=== PATIENT | male | born 1990 | race Caucasian/White ===

== ENCOUNTER 2020-02-06 21:18 | Emergency (ER) | payer OTHER ==
[~2020-02-06] VITALS: Ht 180.3 cm; Wt 80.0 kg
[~2020-02-06 21:18] MED LIST: CEPH500T PO
[2020-02-06 21:27] VITALS: BP 152/68
[2020-02-06] MEDS ORDERED: SULF1TAB49 PO (22:23)
[2020-02-06] MEDS ORDERED: CEPH-572 PO (22:23)
[2020-02-06] MEDS ORDERED: PRED20TA PO (22:23)
[2020-02-06] MEDS ORDERED: cephalexin 250mg capsule PO ONE (22:25)
[2020-02-06] MEDS ORDERED: dexamethasone 4mg tablet PO ONE (22:25)
[2020-02-06] MEDS ORDERED: sulfamethoxazole/trimethoprim DS (800/160mg) tablet PO ONE (22:25)
== END 2020-02-06 22:30 | disposition home or self-care (01) ==
LOC: ER 21:19
DX: L03.113 Cellulitis of right upper limb (principal); L23.7 Allergic contact dermatitis due to plants, except food; F12.90 Cannabis use, unspecified, uncomplicated; F15.90 Other stimulant use, unspecified, uncomplicated; Z90.49 Acquired absence of other specified parts of digestive tract; Z56.0 Unemployment, unspecified; Z79.899 Other long term (current) drug therapy
CPT/HCPCS: 73130; 99284